=== PATIENT | male | born 1965 | race Caucasian/White ===

== ENCOUNTER 2017-05-30 13:56 | Emergency (ER) | payer OTHER ==
[~2017-05-30] VITALS: Ht 165.1 cm; Wt 88.5 kg
[2017-05-30 14:19] VITALS: Ht 165.1 cm; Wt 88.5 kg
[2017-05-30 16:30] VITALS: BP 167/82
== END 2017-05-30 16:30 | disposition home or self-care (01) ==
LOC: ED 13:56
DX: G89.29 Other chronic pain (principal); M54.5 Low back pain
CPT/HCPCS: J1170; J1885; Q0162

== ENCOUNTER 2017-07-14 14:00 | Emergency (ER) | payer OTHER ==
[~2017-07-14] VITALS: Ht 167.6 cm; Wt 90.7 kg
[2017-07-14 14:17] VITALS: BP 152/77; Ht 167.6 cm; Wt 90.7 kg
== END 2017-07-14 16:00 | disposition home or self-care (01) ==
LOC: ED 14:00
DX: G89.29 Other chronic pain (principal); M54.5 Low back pain

== ENCOUNTER 2018-01-22 08:07 | Emergency (ER) | payer OTHER ==
[~2018-01-22] VITALS: Ht 165.1 cm; Wt 84.4 kg
[2018-01-22 08:09] VITALS: BP 176/93; Ht 165.1 cm; Wt 84.4 kg
== END 2018-01-22 08:50 | disposition home or self-care (01) ==
LOC: ED 08:07
DX: G89.29 Other chronic pain (principal); M54.5 Low back pain

== ENCOUNTER 2018-03-20 19:04 | Emergency (ER) | payer OTHER ==
[~2018-03-20] VITALS: Ht 165.1 cm; Wt 85.7 kg
[2018-03-20 19:17] VITALS: Ht 165.1 cm; Wt 85.7 kg
[2018-03-20 21:33] VITALS: BP 109/73
== END 2018-03-20 21:33 | disposition home or self-care (01) ==
LOC: ED 19:04
DX: S39.012A Strain of muscle, fascia and tendon of lower back, initial encounter (principal); W10.8XXA Fall (on) (from) other stairs and steps, initial encounter; Y93.89 Activity, other specified; Y92.098 Other place in other non-institutional residence as the place of occurrence of the external cause; Y99.8 Other external cause status